=== PATIENT | male | born 1985 | race Asian ===

== ENCOUNTER 2018-09-16 11:54 | Emergency (ER) | payer MEDICAID ==
[~2018-09-16] VITALS: Ht 172.7 cm; Wt 70.3 kg
--- NOTE | 2018-09-16 12:00 | NUR ---
ED Nurse Note: FLU SWAB SENT TO LAB
[2018-09-16 12:01] VITALS: BP 124/78
--- NOTE | 2018-09-16 12:11 | NUR ---
ED Nurse Note: PT. AAOX4. AMBULATORY. CAME IN TO ER DUE TO N/V/D X 4 DAYS. PT. UNABLE TO TOLERATE ORAL FLUIDS. LAST BM WAS 2 DAYS AGO-DIARRHEA. PT.'S LAST VOMITING EPISODE WAS YESTERDAY AND PT. REPORTED IT WAS UNDIGESTED FOOD EMESIS. LUNG SOUNDS ARE CLEAR TO AUSCULTATION.
[2018-09-16] MEDS ORDERED: Ketorolac 30mg Inj IM ONE (12:15)
--- NOTE | 2018-09-16 12:19 | Emergency Room Report ---
History of Present Illness General Chief Complaint: Flu Like Symptoms Source: Patient Present Illness HPI The patient is a 32-year-old male presenting for 3 days of nausea, vomiting, subjective fever, myalgia, and dry cough. He states that most symptoms have resolved and is now experiencing mild nausea. He does admit to a sick contact who had similar symptoms. He did not have the flu shot. He denies any recent travel. He denies other symptoms including headache, blurred vision, dizziness, neck pain or stiffness, hemoptysis, shortness of breath, rash, abdominal pain, hematochezia, melena Allergies: Coded Allergies: No Known Allergies (Unverified , 09/16/18) Patient History Past Medical History: see triage record Pertinent Family History: none Reviewed Nursing Documentation: PMH: Agreed; PSxH: Agreed Nursing Documentation-PMH Past Medical History: No Stated History Review of Systems All Other Systems: negative except mentioned in HPI Physical Exam Vital Signs Date Time Temp Pulse Resp B/P (MAP) Pulse Ox O2 Delivery O2 Flow Rate FiO2 09/16/18 12:01 99.0 82 18 124/78 96 Room Air Sp02 EP Interpretation: reviewed, normal General Appearance: no apparent distress, alert, GCS 15, non-toxic Head: normocephalic, atraumatic Eyes: bilateral eye normal inspection, bilateral eye PERRL ENT: hearing grossly normal, normal pharynx, no angioedema, normal voice, uvula midline Neck: full range of motion, supple/symm/no masses Respiratory: chest non-tender, lungs clear, normal breath sounds, no respiratory distress, no retraction, no accessory muscle use, no wheezing, speaking full sentences Cardiovascular #1: regular rate, rhythm, no edema Gastrointestinal: normal bowel sounds, non tender, soft, non-distended, no guarding, no rebound Musculoskeletal: back normal, gait/station normal, normal range of motion, non- tender Neurologic: alert, oriented x3, responsive, motor strength/tone normal, sensory intact, speech normal Psychiatric: judgement/insight normal, memory normal, mood/affect normal, no suicidal/homicidal ideation Skin: normal color, no rash, warm/dry, well hydrated Lymphatic: no adenopathy Medical Decision Making PA Attestation Dr. Schaffer is my supervising physician. Patient management was discussed with my supervising physician Diagnostic Impression: Primary Impression: Influenza-like symptoms ER Course The patient is a 32-year-old male presenting for 3 days of nausea, vomiting, subjective fever, myalgia, and dry cough. DDx considered but not limited to: gastroenteritis, influenza, pharyngitis, PNA , among others PE: Afebrile. NAD HEENT exam unremarkable. No lymphadenopathy Lungs clear to auscultation bilaterally Abdomen soft and nontender The patient is resting comfortably. He states medications helped. He is asking to be discharged before the influenza result is released. He understands the risks associated with this. I told him we would call him with the results. Influenza result comes back positive. I attempted to call the patient several times and left a voicemail. He is told to call back as soon as possible. ER precautions were given Microbiology Date/Time Source Procedure Growth Status 09/16/18 12:15 Nasal Nares Influenza Types A,B Antigen (ANABELA) - Final Complete Lab Results Impression + influenza Last Vital Signs Date Time Temp Pulse Resp B/P (MAP) Pulse Ox O2 Delivery O2 Flow Rate FiO2 09/16/18 12:01 99.0 82 18 124/78 96 Room Air Status: improved Disposition: HOME, SELF-CARE Condition: Improved Scripts Ondansetron* (ZOFRAN*) 4 Mg Tablet 4 MG ORAL Q6H PRN for Nausea & Vomiting, #10 TAB Prov: RITA [email or web address] 09/16/18 Acetaminophen* (TYLENOL EXTRA STRENGTH*) 500 Mg Tablet 500 MG ORAL Q8H PRN for Prn Headache/Temp > 101, #30 TAB 0 Refills Prov: RITA [email or web address] 09/16/18 RITA PONCE Sep 16, 2018 12:19
[2018-09-16] MEDS ORDERED: ZOFRAN4 M3 ORAL (12:49)
[2018-09-16] MEDS ORDERED: TYLENOL EXTRA500 MG ORAL (12:49)
[2018-09-16 13:00] VITALS: BP 124/78
--- NOTE | 2018-09-16 13:00 | NUR ---
ER DISCHARGE NOTE: Patient is cleared to be discharged per ERMD, pt is aox4, on room air, with stable vital signs. pt was given dc and prescription instructions, pt was able to verbalize understanding, pt id band removed by ERRN. pt is able to ambulate with steady gait. pt took all belongings.
== END 2018-09-16 13:00 | disposition home or self-care (01) ==
LOC: EMR 12:20
DX: R11.2 Nausea with vomiting, unspecified (principal); R50.9 Fever, unspecified; M79.10 Myalgia, unspecified site; R05 Cough
CPT/HCPCS: 86710; 96372; 99283; J1885